=== PATIENT | male | born 1970 | race African-American/Black ===

== ENCOUNTER 2018-01-23 14:42 | Outpatient (CLI) | payer OTHER ==
--- NOTE | 2018-01-23 17:25 | RAD ---
RADIOGRAPH CERVICAL SPINE 5 VIEWS: 01/23/18 HISTORY: 47-year-old male with cervicalgia. TECHNIQUE: Open mouth and AP views. Three lateral views in flexion, extension and neutral. FINDINGS: There is loss of lordosis on the neutral lateral view. Vertebral body heights are maintained. There i s moderate disc space narrowing, and anterior end plate osteophytes that protrude into the prevertebr al space, at C5-6. The rest of the disc spaces are maintained. Alignment is normal. There is no sublu xation between flexion and extension. Bony spinal canal is diffusely small in caliber on a congenital bases due to developmentally short pedicles. Atlantoaxial joint spaces are bilaterally maintained. O dontoid is intact. Vertebral body heights are maintained. IMPRESSION: 1. Moderate degenerative disc disease at C5-6. 2. Developmentally small caliber spinal canal. 3. No instability between flexion and extension. BRYAN [] POS: Veronica
--- NOTE | 2018-01-23 17:32 | RAD ---
RADIOGRAPH LUMBAR SPINE 4 VIEWS: DATE: 01-23-18 HISTORY: 47-year-old male with low back pain. TECHNIQUE: Three lateral views in flexion, extension, and neutral. AP view. FINDINGS: There is a transitional level at the thoracolumbar junction. There is no instability between flexion and extension. No scoliosis. Alignment is normal. Vertebral body heights and disc spaces are maintai carol. There is no evidence of fracture, large osteophytes, or any other major focal osseous abnormalit y. IMPRESSION: Essentially normal. deondre POS: NAM
== END 2018-01-23 14:43 | disposition home or self-care (01) ==
LOC: RAD 14:42
PROVIDERS: ATTEND Nurse Practitioner Family
DX: M54.5 Low back pain (principal); M54.2 Cervicalgia; M50.322 Other cervical disc degeneration at C5-C6 level
CPT/HCPCS: 72050; 72120

== ENCOUNTER 2018-03-14 22:49 | Emergency (ER) | payer OTHER ==
[2018-03-14 23:49] LABS: #Basophils 0.1 thou/uL (0.0-0.2); #Eosinphils 0.1 thou/uL (0.0-0.7); #Monocytes 0.5 thou/uL (0.11-0.59); #Neutrophils 5.4 thou/uL (1.40-6.50); %Basophils 1.4 % (0.0-1.0); %Eosinophils 1.6 % (0.0-10.0); %Lymphocytes 24.4 % (21.0-51.0); %Neutrophils 66.6 % (42.0-75.0); Hemoglobin 16.2 g/dL (14.0-18.0); Mean Corpuscular HGB CONC 33.4 g/dL (32.0-36.0); Mean Corpuscular Hemoglobin 28.8 pg (27.0-31.0); Mean Corpuscular Volume 86.2 fL (78.0-98.0); Mean Platelet Volume 7.8 fL (7.4-10.4); Platelet Count 243 thou/uL (130-400); RBC Distribution Width 11.5 % (11.5-14.5); Red Blood Cell (RBC) Count 5.62 mill/uL (4.70-6.10); White Blood Cell (WBC) Count 8.2 thou/uL (4.8-10.8)
[2018-03-14 23:57] LABS: ALT (SGPT) 45 U/L (8-55); AST (SGOT) 22 U/L (5-34); Albumin 4.8 g/dL (3.5-5.0); Alkaline Phosphatase 67 U/L (40-150); Anion Gap 17 mmol/L (10-20); BUN (Urea Nitrogen) 23 mg/dL (8.9-20.6); Bilirubin, Total 0.9 mg/dL (0.2-1.2); Calc. Creatinine Clearance 0 mL/min (70-130); Calcium 9.7 mg/dL (7.8-10.44); Carbon Dioxide 28 mmol/L (22-29); Chloride 99 mmol/L (98-107); Estimated GFR-MDRD 42; Globulin 2.7 g/dL (2.4-3.5); Glucose 469 mg/dL (70-105); Potassium 4.1 mmol/L (3.5-5.1); Protein, Total 7.5 g/dL (6.0-8.3); Sodium 140 mmol/L (136-145)
[2018-03-15] MEDS ORDERED: Insulin Regular 300 UNITS/3 ML VIAL ONE (00:03)
[2018-03-15 02:08] LABS: Anion Gap 15 mmol/L (10-20); BUN (Urea Nitrogen) 22 mg/dL (8.9-20.6); Calc. Creatinine Clearance 0 mL/min (70-130); Calcium 8.9 mg/dL (7.8-10.44); Carbon Dioxide 26 mmol/L (22-29); Chloride 104 mmol/L (98-107); Estimated GFR-MDRD 52; Glucose 297 mg/dL (70-105); Potassium 3.9 mmol/L (3.5-5.1); Sodium 141 mmol/L (136-145)
== END 2018-03-15 02:38 | disposition home or self-care (01) ==
LOC: SCSER 22:49
DX: E11.65 Type 2 diabetes mellitus with hyperglycemia (principal); E86.0 Dehydration; E78.5 Hyperlipidemia, unspecified; I10 Essential (primary) hypertension; Z79.4 Long term (current) use of insulin; Z79.899 Other long term (current) drug therapy
CPT/HCPCS: 36416; 80048; 80053; 82010; 85025; 96361; 96374; J1815

== ENCOUNTER 2018-07-24 10:06 | Emergency (ER) | payer OTHER ==
[2018-07-24] MEDS ORDERED: Famotidine/PF 20 mg/2ml Vial ONE (11:11)
[2018-07-24] MEDS ORDERED: Mag-Al Plus 1200 MG/1200 MG/120 MG/30 ML UDCUP ONE (11:11)
[2018-07-24] MEDS ORDERED: Lidocaine Viscous Sol 2% 15 ml UD Cup ONE (11:11)
[2018-07-24] MEDS ORDERED: Famotidine 20 MG TAB ONE (11:12)
[2018-07-24 11:17] LABS: #Basophils 0.1 thou/uL (0.0-0.2); #Lymphocytes 1.1 thou/uL (1.20-3.40); #Monocytes 0.4 thou/uL (0.11-0.59); #Neutrophils 4.6 thou/uL (1.40-6.50); %Basophils 0.8 % (0.0-1.0); %Eosinophils 0.8 % (0.0-10.0); %Lymphocytes 17.5 % (21.0-51.0); %Monocytes 6.7 % (0.0-10.0); %Neutrophils 74.3 % (42.0-75.0); Hemoglobin 16.4 g/dL (14.0-18.0); Mean Corpuscular HGB CONC 32.8 g/dL (32.0-36.0); Mean Corpuscular Hemoglobin 28.4 pg (27.0-31.0); Mean Corpuscular Volume 86.8 fL (78.0-98.0); Mean Platelet Volume 5.7 fL (7.4-10.4); Platelet Count 249 thou/uL (130-400); Red Blood Cell (RBC) Count 5.76 mill/uL (4.70-6.10); White Blood Cell (WBC) Count 6.2 thou/uL (4.8-10.8)
[2018-07-24 11:28] LABS: ALT (SGPT) 42 U/L (8-55); AST (SGOT) 23 U/L (5-34); Albumin 4.6 g/dL (3.5-5.0); Alkaline Phosphatase 46 U/L (40-150); Anion Gap 12 mmol/L (10-20); BUN (Urea Nitrogen) 13 mg/dL (8.9-20.6); Bilirubin, Total 1.1 mg/dL (0.2-1.2); CK (CPK) 790 U/L (30-200); Calc. Creatinine Clearance 0 mL/min (70-130); Calcium 9.1 mg/dL (7.8-10.44); Carbon Dioxide 30 mmol/L (22-29); Chloride 102 mmol/L (98-107); Estimated GFR-MDRD 63; Globulin 2.4 g/dL (2.4-3.5); Glucose 128 mg/dL (70-105); Lipase 49 U/L (8-78); Potassium 3.4 mmol/L (3.5-5.1); Sodium 141 mmol/L (136-145)
[2018-07-24 12:09] LABS: Bilirubin Negative (Negative); Blood, Urine Negative (Negative); Clarity Clear (Clear); Glucose, Urine (Dipstick) Negative (Negative); Leukocyte Negative (Negative); Nitrite Negative (Negative); Protein, Urine (Dipstick) 30 mg/dL (Neg-Trace); Specific Gravity, Urine 1.025 (1.005-1.030); Urobilinogen 0.2 mg/dL (0.2-1.0); pH, Urine 5.5 (5.0-9.0)
[2018-07-24 12:19] LABS: Bacteria/HPF None Seen HPF (None Seen); Hyaline Casts/LPF 0-3 HYALINE CAST LPF (0-3 Hyaline); RBC/HPF 0-3 HPF (0-3); Squamous Epithelial 0-3 HPF (0-3); WBC/HPF 0-3 HPF (0-3)
--- NOTE | 2018-07-24 12:32 | CT ---
CT ABDOMEN AND PELVIS NONCONTRAST: HISTORY: Flank pain. FINDINGS: Each renal collecting system, ureter, and the urinary bladder are decompressed without stone apparent . Lack of contrast limits evaluation for other abnormalities. The liver is heterogeneous and predomina ntly hypodense. Dystrophic calcification is apparent within the mesenteric fat of the upper central abdomen. No evidence of bowel obstruction. Mild arterial calcification. IMPRESSION: 1. No CT evidence of urinary tract obstruction or calcification. 2. No evidence of bowel obstruction. 3. Hepatosteatosis. POS: [facility]
== END 2018-07-24 12:41 | disposition home or self-care (01) ==
LOC: SCSER 10:06
DX: R11.2 Nausea with vomiting, unspecified (principal); R19.7 Diarrhea, unspecified; E78.5 Hyperlipidemia, unspecified; I10 Essential (primary) hypertension; E11.9 Type 2 diabetes mellitus without complications; Z79.4 Long term (current) use of insulin; Z79.899 Other long term (current) drug therapy
CPT/HCPCS: 36415; 74176; 80053; 81003; 81015; 82550; 83690; 84484; 85025; 93005; S0028